=== PATIENT | female | born 1970 | race Caucasian/White ===

== ENCOUNTER 2017-08-11 12:42 | Emergency (ER) | payer BC ==
[~2017-08-11] VITALS: Ht 160 cm; Wt 74.2 kg
[2017-08-11 12:46] VITALS: BP 140/78; PULSE 79; RESP 16; TEMP 98.4; O2SAT 98
--- NOTE | 2017-08-11 13:02 | PD ---
HPI Chief Complaint: Skin Problem Time Seen by Provider: 13:02 Travel History International Travel<30 days: No Contact w/Intl Traveler<30days: No Traveled to known affect area: No History of Present Illness HPI 47-year-old white female here with friend for a 4 day history of a painful, nondraining lesion to her left third finger. Describes the pain as moderate and nothing relieves her pain. It is located just distal to the PIP and she is now having trouble bending her finger. She thinks that something bit her but did not see the offending insect. She is from [place]. She denies any chronic medical issues, chronic medication use and illicit drug use. This has never occurred before. . PFSH Past Medical History ?: Not LMP: 07/12/17 Past Surgical History Appendectomy: Yes Social History Alcohol Use: No Tobacco Use: No Substance Use: No Allergies-Medications (Allergen,Severity, Reaction): Coded Allergies: No Known Allergies (Verified Allergy, Unknown, 08/11/17) Reported Meds & Prescriptions Reported Meds & Active Scripts Active Bactrim DS (Sulfamethoxazole-Trimethoprim) 800-160 Mg Tab 1 Tab PO BID Review of Systems Except as stated in HPI: all other systems reviewed are Neg Physical Exam Narrative 48-year-old female with a lesion to her left third finger. GENERAL: Well-developed well-nourished SKIN: Focused skin assessment warm/dry. HEAD: Atraumatic. Normocephalic. EYES: Pupils equal and round. No scleral icterus. No injection or drainage. NECK: Trachea midline. No JVD. CARDIOVASCULAR: Regular rate and rhythm. No murmur appreciated. RESPIRATORY: No accessory muscle use. Clear to auscultation. Breath sounds equal bilaterally. MUSCULOSKELETAL: No obvious deformities. No clubbing. No cyanosis. No edema. Able to passively flex fingers. difficulty with active d/t pain. brisk cp refill NEUROLOGICAL: Awake and alert. Motor grossly within normal limits. Normal speech. sensation intact B/L hands PSYCHIATRIC: Appropriate mood and affect; insight and judgment normal. Data Data Last Documented VS Vital Signs Date Time Temp Pulse Resp B/P (MAP) Pulse Ox O2 Delivery O2 Flow Rate FiO2 08/11/17 12:46 98.4 79 16 140/78 (98) 98 Orders Orders Tetanus/Diphtheria Tox Adult (Tetanus/Di (08/11/17 13:30) [facility] Medical Decision Making Medical Screen Exam Complete: Yes Emergency Medical Condition: Yes Differential Diagnosis Left middle finger: abscess vs insect bite vs cellulitis Narrative Course Pt with lesion on left middle finger for 3 days. Denies any signs of infection and medical history. I&D performed and pt tolerated well. Discharge with ABX and advised to follow up with PCP in [place]. Advised on wound care instructions. Return to the ED if site worsens. Procedures Procedure Narrative Incision and drainage Site was cleansed thoroughly with iodine. A digital nerve block was performed on medial and lateral aspect of her middle finger with good anesthesia. #11 blade incised a 5mm area for expression of fluid. Blood exudate expressed easily with minimal manipulation. Pt tolerated procedure well. Diagnosis Primary Impression: Abscess Referrals: Primary Care Physician Additional Instructions: Keep area clean and dry. Change dressings daily. Take all antibiotics as prescribed. Follow up with your Primary Care physician within a couple of days. Return to the emergency department if finger becomes more swollen, develops more redness, or becomes more painful. You may take motrin or tylenol for the pain per package instructions. Scripts Sulfamethoxazole-Trimethoprim (Bactrim DS) 800-160 Mg Tab 1 TAB PO BID for Infection, #20 TAB 0 Refills Prov: Shiela Sultana 08/11/17 Disposition: 01 DISCHARGE HOME Condition: Stable Shiela Sultana Aug 11, 2017 13:02
[2017-08-11] MEDS ORDERED: TETANUS/DIPHTHERIA TOXOID ADULT 0.5 ML VIAL IM ONE (13:30)
[2017-08-11] MEDS ORDERED: BACT800T5 PO (13:37)
== END 2017-08-11 13:55 | disposition home or self-care (01) ==
LOC: PHEFT 12:42
DX: L02.512 Cutaneous abscess of left hand (principal); Z23 Encounter for immunization
CPT/HCPCS: 10140; 64450; 90471; 90714